=== PATIENT | male | born 1950 | race Caucasian/White ===

== ENCOUNTER 2019-02-01 12:51 | Inpatient (IN) | payer MEDICARE ==
[2019-02-01] MEDS ORDERED: NITROGLYCERIN 2% 1 GM OINT PKT TD (12:58)
[2019-02-01] MEDS ORDERED: NITROGLYCERIN (SL) 0.4 MG TAB SL (13:00)
[2019-02-01 13:08] LABS: ADD MAN DIFF? NO
[2019-02-01 13:17] LABS: WHITE BLOOD COUNT 8.6 10^3/ul (4.8-10.8)
[2019-02-01 13:17] LABS: BASOPHIL # 0.1 10^3/ul (0.0-0.1); EOSINOPHILS # 0.2 10^3/ul (0.0-0.5); EOSINOPHILS % 2.2 % (0.0-7.0); HEMATOCRIT 39.7 % (42.0-52.0); HEMOGLOBIN 12.6 g/dl (14.0-18.0); LYMPHOCYTES # 1.1 10^3/ul (0.8-2.9); LYMPHOCYTES % 12.3 % (15.0-51.0); MEAN CORPUSCULAR HEMOGLOBIN 30.9 pg (29.0-33.0); MEAN CORPUSCULAR HGB CONC 31.7 g/dl (32.0-37.0); MEAN CORPUSCULAR VOLUME 97.3 fl (82.0-101.0); MONOCYTE # 0.7 10^3/ul (0.3-0.9); MONOCYTES % 8.4 % (0.0-11.0); NEUTROPHIL # 6.5 10^3/ul (1.6-7.5); NEUTROPHILS % 75.6 % (39.0-77.0); PLATELET COUNT 414 10^3/UL (140-415); RED BLOOD COUNT 4.08 10^6/ul (4.70-6.10); RED CELL DISTRIBUTION WIDTH 13.7 % (11.5-14.5)
[2019-02-01] MEDS: morphine 4 MG/ML VIAL IV (13:30)
[2019-02-01] MEDS: ONDANSETRON 4 MG INJ IV (13:30)
[2019-02-01 13:36] LABS: ANION GAP 8 (5-13); BLOOD UREA NITROGEN 33 mg/dl (7-20); CALCIUM 11.1 mg/dl (8.4-10.2); CARBON DIOXIDE 24 mmol/L (21-31); CHLORIDE 108 mmol/L (97-110); CREATININE 1.52 mg/dl (0.61-1.24); Estimated GFR 46 mL/min (>60); GLUCOSE 211 mg/dl (70-220); POTASSIUM 4.2 mmol/L (3.5-5.1); SODIUM 140 mmol/L (135-144)
[2019-02-01 13:47] LABS: TROPONIN-I < 0.012 ng/ml (0.000-0.120)
[2019-02-01 14:13] LABS: ALANINE AMINOTRANSFERASE 44 IU/L (13-69); ALBUMIN 4.1 g/dl (3.3-4.9); ALKALINE PHOSPHATASE 69 IU/L (42-121); ASPARTATE AMINO TRANSFERASE 39 IU/L (15-46); BILIRUBIN,INDIRECT 0.5 mg/dl (0-1.1); BILIRUBIN,TOTAL 0.5 mg/dl (0.2-1.3); LIPASE 315 U/L (23-300); TOTAL PROTEIN 7.4 g/dl (6.1-8.1)
[2019-02-01] MEDS ORDERED: ACETAMINOPHEN 325 MG TAB PO (17:00)
[2019-02-01] MEDS ORDERED: ONDANSETRON 4 MG INJ IV ×2 (17:00→17:30)
[2019-02-01] MEDS ORDERED: NACL 0.9% 3 ML SYG IV (17:30)
[2019-02-01] MEDS ORDERED: GLUCOSE GEL 15 GRAM TUBE PO ×2 (18:00)
[2019-02-01] MEDS ORDERED: GLUCAGON 1 MG INJ IM (18:00)
[2019-02-01] MEDS ORDERED: DEXTROSE 50% 50 ML SYRINGE IV ×2 (18:00)
[2019-02-01] MEDS: INSULIN ASPART [NOVOLOG] 3 ML PEN SC (18:00)
[2019-02-01] MEDS ORDERED: GLUCOSE GEL 15 GRAM TUBE BUCCAL (18:00)
[2019-02-01] MEDS: SOD CHLORIDE 0.9% 1,000 ML IV (20:13)
[2019-02-01] MEDS: morphine 2 MG INJ IV (21:22)
[2019-02-01 22:50] LABS: CREATINE KINASE 110 IU/L (23-200)
[2019-02-01 23:03] LABS: CK INDEX 1.7; CK-MB 1.88 ng/ml (0.0-2.4); TROPONIN-I < 0.012 ng/ml (0.000-0.120)
[2019-02-02] MEDS: INSULIN ASPART [NOVOLOG] 3 ML PEN SC ×6 (01:00→21:00)
[2019-02-02] MEDS: ACCU-CHEK XX (02:00)
[2019-02-02 06:01] LABS: ADD MAN DIFF? NO
[2019-02-02 06:06] LABS: WHITE BLOOD COUNT 9.5 10^3/ul (4.8-10.8)
[2019-02-02 06:06] LABS: BASOPHIL # 0.1 10^3/ul (0.0-0.1); BASOPHILS % 0.9 % (0.0-2.0); EOSINOPHILS # 0.2 10^3/ul (0.0-0.5); EOSINOPHILS % 1.6 % (0.0-7.0); HEMATOCRIT 39.9 % (42.0-52.0); HEMOGLOBIN 12.4 g/dl (14.0-18.0); LYMPHOCYTES # 1.4 10^3/ul (0.8-2.9); LYMPHOCYTES % 14.5 % (15.0-51.0); MEAN CORPUSCULAR HEMOGLOBIN 30.5 pg (29.0-33.0); MEAN CORPUSCULAR HGB CONC 31.1 g/dl (32.0-37.0); MEAN CORPUSCULAR VOLUME 98.3 fl (82.0-101.0); MEAN PLATELET VOLUME 10.6 fl (7.4-10.4); MONOCYTE # 1.3 10^3/ul (0.3-0.9); NEUTROPHIL # 6.5 10^3/ul (1.6-7.5); NEUTROPHILS % 68.5 % (39.0-77.0); PLATELET COUNT 423 10^3/UL (140-415); RED BLOOD COUNT 4.06 10^6/ul (4.70-6.10); RED CELL DISTRIBUTION WIDTH 13.9 % (11.5-14.5)
[2019-02-02 06:27] LABS: CHOLESTEROL 137 mg/dl (100-200)
[2019-02-02 06:27] LABS: CHOL/HDL RATIO 4.1 RATIO; HDL CHOLESTEROL 33 mg/dl (31-75); LDL CHOLESTEROL,CALCULATED 87 mg/dl; TRIGLYCERIDES 86 mg/dl (0-149)
[2019-02-02 06:31] LABS: CREATINE KINASE 150 IU/L (23-200)
[2019-02-02 06:41] LABS: CK INDEX 1.4; CK-MB 2.12 ng/ml (0.0-2.4); TROPONIN-I 0.028 ng/ml (0.000-0.120)
[2019-02-02 06:48] LABS: ALANINE AMINOTRANSFERASE 36 IU/L (13-69); ALBUMIN 3.6 g/dl (3.3-4.9); ALBUMIN/GLOBULIN RATIO 1.16; ALKALINE PHOSPHATASE 51 IU/L (42-121); ANION GAP 4 (5-13); ASPARTATE AMINO TRANSFERASE 32 IU/L (15-46); BILIRUBIN,INDIRECT 0.8 mg/dl (0-1.1); BILIRUBIN,TOTAL 0.8 mg/dl (0.2-1.3); BLOOD UREA NITROGEN 28 mg/dl (7-20); CALCIUM 10.5 mg/dl (8.4-10.2); CARBON DIOXIDE 28 mmol/L (21-31); CHLORIDE 111 mmol/L (97-110); CREATININE 1.38 mg/dl (0.61-1.24); Estimated GFR 51 mL/min (>60); GLUCOSE 127 mg/dl (70-220); POTASSIUM 5.5 mmol/L (3.5-5.1); SODIUM 143 mmol/L (135-144); TOTAL PROTEIN 6.7 g/dl (6.1-8.1)
[2019-02-02] MEDS: SOD CHLORIDE 0.9% 1,000 ML IV ×3 (07:20→15:22)
[2019-02-02] MEDS: FENOFIBRATE 145 MG TAB PO (09:00)
[2019-02-02] MEDS: LOSARTAN 50 MG TAB PO (09:00)
[2019-02-02] MEDS: TOPIRAMATE 100 MG TAB PO (09:00)
[2019-02-02] MEDS ORDERED: METOCLOPRAMIDE 10 MG INJ IV (11:30)
[2019-02-02] MEDS ORDERED: ONDANSETRON 4 MG INJ IV ×2 (11:30→13:30)
[2019-02-02] MEDS ORDERED: HYDROmorphONE 1 MG/5 ML IV SYRINGE IV ×2 (11:30)
[2019-02-02] MEDS ORDERED: hydrALAzine 20 MG INJ IV (11:30)
[2019-02-02] MEDS ORDERED: LABETALOL HCL 20MG INJ IV (11:30)
[2019-02-02] MEDS ORDERED: DIPHENHYDRAMINE 50 MG INJ IV (11:30)
[2019-02-02] MEDS ORDERED: MIDAZOLAM 1 MG/ML 2 ML INJ (11:42)
[2019-02-02] MEDS ORDERED: GLYCOPYRROLATE 0.4 MG INJ (12:52)
[2019-02-02] MEDS ORDERED: LIDOCAINE 2% (SDV) 5 ML INJ (12:52)
[2019-02-02] MEDS ORDERED: ETOMIDATE 20 MG INJ (12:52)
[2019-02-02] MEDS ORDERED: ROCURONIUM 50 MG INJ (12:52)
[2019-02-02] MEDS ORDERED: NEOSTIGMINE 3 MG/3 ML SYRINGE (12:52)
[2019-02-02] MEDS ORDERED: CEFAZOLIN 1 GM INJ (12:53)
[2019-02-02] MEDS ORDERED: ONDANSETRON 4 MG INJ (12:53)
[2019-02-02] MEDS ORDERED: ROPIVACAINE 0.5 % 30 ML VIAL (12:54)
[2019-02-02] MEDS ORDERED: ROPIVACAINE 0.2% 20 ML VIAL (13:12)
[2019-02-02] MEDS ORDERED: ACETAMINOPHEN 325 MG TAB PO (13:30)
[2019-02-02] MEDS ORDERED: HYDROmorphONE 0.5 MG/0.5 ML SYG IV (13:30)
[2019-02-02] MEDS ORDERED: LACTATED RINGER'S 1,000 ML IV (13:30)
[2019-02-02] MEDS: LIDOCAINE 1% (MPF) 30 ML INJ (13:30)
[2019-02-02] MEDS ORDERED: IBUPROFEN 600 MG TAB PO (13:30)
[2019-02-02] MEDS: BUPIVACAINE 0.25%/EPI (SDV) 30 ML INJ (13:30)
[2019-02-02] MEDS: FENTAnyl 50 MCG/ML VIAL IV ×2 (13:52→13:59)
[2019-02-02] MEDS: MEPERIDINE 25 MG INJ IV (14:19)
[2019-02-02] MEDS: morphine 2 MG INJ IV (15:16)
[2019-02-02 16:58] LABS: ANION GAP 7 (5-13); BLOOD UREA NITROGEN 26 mg/dl (7-20); CALCIUM 9.6 mg/dl (8.4-10.2); CARBON DIOXIDE 25 mmol/L (21-31); CHLORIDE 111 mmol/L (97-110); CREATININE 1.21 mg/dl (0.61-1.24); Estimated GFR 59 mL/min (>60); GLUCOSE 157 mg/dl (70-220); POTASSIUM 4.1 mmol/L (3.5-5.1); SODIUM 143 mmol/L (135-144)
[2019-02-02] MEDS: OXYCODONE/ACETAMINOPHEN (5/325) TAB PO (21:22)
[2019-02-03] MEDS: ACCU-CHEK XX (02:00)
[2019-02-03] MEDS: SOD CHLORIDE 0.9% 1,000 ML IV (03:59)
[2019-02-03 05:33] LABS: ADD MAN DIFF? NO
[2019-02-03 05:38] LABS: BASOPHIL # 0.1 10^3/ul (0.0-0.1); BASOPHILS % 0.5 % (0.0-2.0); EOSINOPHILS % 0.1 % (0.0-7.0); HEMATOCRIT 36.5 % (42.0-52.0); HEMOGLOBIN 11.3 g/dl (14.0-18.0); LYMPHOCYTES # 0.6 10^3/ul (0.8-2.9); LYMPHOCYTES % 5.1 % (15.0-51.0); MEAN CORPUSCULAR HEMOGLOBIN 30.5 pg (29.0-33.0); MEAN CORPUSCULAR VOLUME 98.6 fl (82.0-101.0); MEAN PLATELET VOLUME 10.8 fl (7.4-10.4); MONOCYTE # 1.4 10^3/ul (0.3-0.9); MONOCYTES % 11.3 % (0.0-11.0); NEUTROPHIL # 10.3 10^3/ul (1.6-7.5); NEUTROPHILS % 82.6 % (39.0-77.0); PLATELET COUNT 328 10^3/UL (140-415); RED CELL DISTRIBUTION WIDTH 13.8 % (11.5-14.5)
[2019-02-03 05:38] LABS: WHITE BLOOD COUNT 12.4 10^3/ul (4.8-10.8)
[2019-02-03 06:03] LABS: ANION GAP 7 (5-13); BLOOD UREA NITROGEN 22 mg/dl (7-20); CALCIUM 9.5 mg/dl (8.4-10.2); CARBON DIOXIDE 25 mmol/L (21-31); CHLORIDE 108 mmol/L (97-110); CREATININE 1.22 mg/dl (0.61-1.24); Estimated GFR 59 mL/min (>60); GLUCOSE 172 mg/dl (70-220); MAGNESIUM 1.6 mg/dl (1.7-2.5); PHOSPHORUS 3.5 mg/dl (2.5-4.9); POTASSIUM 4.1 mmol/L (3.5-5.1); SODIUM 140 mmol/L (135-144)
[2019-02-03] MEDS: ENOXAPARIN 30 MG/0.3 ML SYG SC (06:51)
[2019-02-03] MEDS: FENOFIBRATE 145 MG TAB PO (08:11)
[2019-02-03] MEDS: TOPIRAMATE 100 MG TAB PO (08:12)
[2019-02-03] MEDS: LOSARTAN 50 MG TAB PO (08:13)
[2019-02-03] MEDS: INSULIN ASPART [NOVOLOG] 3 ML PEN SC ×2 (09:07→12:44)
[2019-02-03] MEDS: MAGNESIUM OXIDE 400 MG TAB PO (12:16)
== END 2019-02-03 16:04 | disposition home or self-care (01) | DRG 419 ==
LOC: E/R 12:51 → 2NE 16:36
PROC: 0FT44ZZ Resection of Gallbladder, Percutaneous Endoscopic Approach (ICD-10-PCS; principal; 2019-02-02 11:30)
DX: K80.10 Calculus of gallbladder with chronic cholecystitis without obstruction (principal); E11.9 Type 2 diabetes mellitus without complications; G43.909 Migraine, unspecified, not intractable, without status migrainosus; I10 Essential (primary) hypertension; E87.5 Hyperkalemia; R00.0 Tachycardia, unspecified
CPT/HCPCS: 36415; 71045; 74176; 76705; 80048; 80053; 80061; 80076; 82550; 82553; 82962; 83036; 83690; 83735; 84100; 84484; 85025; 88304; 93005; 96374; 96375; 99285-25